=== PATIENT | male | born 2000 ===

== ENCOUNTER 2022-11-19 20:38 | Emergency (ER) | payer OTHER, SELFPAY ==
[2022-11-19 20:44] VITALS: BP 154/85; PULSE 103; RESP 24; TEMP 37.2; O2SAT 97; BMI 28.0
--- NOTE | 2022-11-19 21:22 | PC.NURSE ---
Commanding officers at the bedside. Pt was made aware that commanding officers did not need to be informed of patient's visit. Pt verbalizes in understanding, but still wanted to speak with commanding officers. All clothing removed from patient and placed in cabinet. Pt with phone, underwear, and socks. Continues to be 1:1 safety monitoring at this time.
[2022-11-19 21:23] LABS: Add Manual Diff / Slide Review NO; Basophils Absolute Auto 0 /uL (0-100); Basophils Percent Auto 0.3 % (0-2); Eosinophils Absolute Auto 0 /uL (0-450); Eosinophils Percent Auto 0.4 % (2-4); Hematocrit 48.9 % (41-53); Hemoglobin 16.2 g/dL (13.5-17.5); Lymphocytes Absolute Auto 2300 /uL (1100-4500); Lymphocytes Percent Auto 28.5 % (25-40); Mean Corpuscular HGB Conc 33.1 % (30-36); Mean Corpuscular Hemoglobin 28.2 PG (26-34); Mean Corpuscular Volume 85.2 fL (80-100); Monocytes Absolute Auto 700 /uL (0-900); Neutrophils Absolute Auto 5100 /uL (1500-7000); Neutrophils Percent Auto 62.8 % (50-75); Platelet Count 251 X10^3/uL (150-400); Red Blood Cell Count 5.74 X10^6/uL (4.5-5.9); Red Cell Distribution Width 14.4 % (11.6-14.8); White Blood Cell Count 8.2 X10^3/uL (4.5-11.0)
[2022-11-19 21:29] LABS: Acetaminophen < 10 ug/mL (10-30); Salicylate < 1.0 mg/dL (<20)
[2022-11-19 21:30] LABS: Alanine Aminotransferase 27 IU/L (<50); Albumin 4.8 g/dL (3.5-5.0); Albumin Globulin Ratio 1.6 (1.0-2.8); Alkaline Phosphatase 74 U/L (38-126); Aspartate Aminotransferase 25 IU/L (17-59); BUN Creatinine Ratio 15.9 (6-22); Bilirubin Total 0.4 mg/dL (0.2-1.3); Blood Urea Nitrogen 13 mg/dL (9-20); Carbon Dioxide 23 mmol/L (22-32); Chloride 106 mmol/L (98-107); Estimated Glomerular Filt Rate > 60 mL/min (>60); Ethanol (ETOH) 143 mg/dL; Glucose 103 mg/dL (70-100); HEMOLYSIS 19 (0-50); Potassium 3.6 mmol/L (3.4-5.1); Sodium 142 mmol/L (137-145); Total Protein 7.8 g/dL (6.3-8.2)
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
[2022-11-19 21:32] LABS: Appearance Urine UA CLEAR; Bilirubin Urine UA NEGATIVE (NEGATIVE); Glucose Urine UA NEGATIVE (Negative); Ketones Urine UA NEGATIVE (NEGATIVE); Leukocyte Esterase Urine UA NEGATIVE (NEGATIVE); Nitrite Urine UA NEGATIVE (Negative); Occult Blood Urine UA NEGATIVE (Negative); Protein Urine UA NEGATIVE (Negative); Specific Gravity Urine UA <=1.005 (1.000-1.035); Urobilinogen Urine UA 0.2 E.U./dL (0.2); pH Urine UA 5.5 (4.5-8.0)
[2022-11-19 21:33] LABS: Color Urine UA Straw
[2022-11-19 21:34] LABS: Ur Creatinine 20 (Normal)
[2022-11-19 21:35] LABS: UR Morphine/Opiate cutoff 300 Negative (Negative); Ur Specific Gravity <1.005 (Normal); Urine Amphetamines Negative (Negative); Urine Barbiturates Negative (Negative); Urine Benzodiazepines Negative (Negative); Urine Cocaine Negative (Negative); Urine MDMA Negative (Negative); Urine Methadone Negative (Negative); Urine Methamphetamines Negative (Negative); Urine Oxycodone Negative (Negative); Urine Phencyclidine Negative (Negative); Urine Tetrahydrocannabinol Negative (Negative); Urine Tricyclic Antidepressant Negative (Negative); Urine pH 5.5 (Normal)
[2022-11-19 21:42] LABS: Bacteria Urine None Seen; Culture Indicated Urine Cult Not Indicated; RBC Urine None Seen (0-5/HPF); Squamous Epithelial Cell Urine None Seen (0-5/HPF); WBC Urine None Seen (0-5/HPF)
--- NOTE | 2022-11-19 21:58 | PC.NURSE ---
Continually speaking with commanding officers at this time.
--- NOTE | 2022-11-19 22:29 | PC.NURSE ---
Commanding officers asked to leave. Commanding officer approached this RN and stated that pt expressed to them that he was going to end his life by January.
[2022-11-20 05:46] VITALS: BP 118/58; PULSE 70; RESP 16; O2SAT 100
[2022-11-20] MEDS: IBUPROFEN 400 MG TABLET 800 MG PO (07:51)
[2022-11-20] MEDS: ACETAMINOPHEN 325 MG TABLET 975 MG PO (07:51)
--- NOTE | 2022-11-20 07:51 | PC.NURSE ---
Pt awake and alert. Reports he has a headache and tylenol/ibu given per APR. labs drawn. given water and coffee. Awaiting medical clearance pending labs.
[2022-11-20 07:56] LABS: Ethanol (ETOH) < 10 mg/dL
== END 2022-11-20 08:45 | disposition home or self-care (01) ==
PROVIDERS: Emergency Medicine; Emergency Provider Emergency Medicine
DX: R45.851 Suicidal ideations (principal); F10.129 Alcohol abuse with intoxication, unspecified; Y90.6 Blood alcohol level of 120-199 mg/100 ml
CPT/HCPCS: 36415; 80053; 80305; 80320; 80329; 81001; 85025; 93005; 99284; G0480